=== PATIENT | female | born 1995 | race Caucasian/White ===

== ENCOUNTER 2022-01-01 07:51 | Inpatient (IN) | payer SELFPAY ==
[~2022-01-01] VITALS: Ht 172.7 cm; Wt 80.0 kg
[2022-01-02] VITALS (64 sets, daily range): BP systolic 90–140; BP diastolic 51–94; PULSE 61–101; TEMP 97.6–98.5
--- NOTE | 2022-01-02 06:30 | NUR ---
0630 - PATIENT AMBULATORY TO LDR6 WITH SPOUSE. 0639 - PATIENT CHANGES INTO GOWN. PLAN OF CARE DISCUSSED WITH PATIENT AND SPOUSE. PATIENT PLACED ON MONITOR, VITAL SIGNS OBTAINED. PATIENT REPORTS NO BLEEDING, CONTRACTIONS OR LEAKING OF FLUID. PATIENT REPORTS FEELING APPROPRIATE ACTIVITY. PATIENT ORIENTED TO ROOM AND GIVEN EDUCATION PACKET. CONSENTS EXPLAINED AND SIGNED. 0645 - IV PLACED AND LABS DRAWN ORDERED. LR INITIATED ORDERED. 0725 - PITOCIN GTT INITIATED AT 2MILIUNITS/HR. CARE ONGOING.
[2022-01-02] MEDS ORDERED: PRENATAL TABLET (06:58)
[2022-01-02] MEDS ORDERED: ASPIRIN 81M81 MG/TA2 PO (06:58)
--- NOTE | 2022-01-02 07:50 | NUR ---
0750 - MD TRACEY AT BEDSIDE. PLAN OF CARE DISCUSSED. 0752 - SVE BY . . 0754 - AROM BY MD TRACEY. CARE ONGOING.
[2022-01-02 08:01] LABS: BASO % 0.4 % (0.0-2.0); EOS # 0.1 K/mm3 (0.0-0.7); EOS % 1.7 % (0.0-4.0); GRAN # 5.4 K/mm3 (1.4-6.5); GRAN % 68.2 % (42.2-75.2); HEMOGLOBIN 12.3 g/dl (12.5-16.0); LYMPH # 1.7 K/mm3 (1.2-3.4); LYMPH % 21.8 % (20.0-51.0); MEAN CELL VOLUME 92 fl (80.0-100.0); MEAN CORPUSCULAR HEMOGLOBIN 32 pg (27-31); MEAN CORPUSCULAR HGB CONC 35 g/dl (33.0-37.0); MEAN PLATELET VOLUME 10.7 fl (7.4-10.4); MONO # 0.6 K/mm3 (0.1-0.6); MONO % 7.5 % (1.7-9.3); PLATELET COUNT 192 K/mm3 (130-400); RED BLOOD COUNT 3.89 M/mm3 (4.10-5.30); REDCELL DISTRIBUTION WIDTH-CV 12.6 % (11.5-14.5)
[2022-01-02 08:26] LABS: HEMATOCRIT 35.6 % (37.0-47.0)
--- NOTE | 2022-01-02 11:50 | NUR ---
1150 - PATIENT AMBULATING TO BATHROOM. 1155 - MD TRACEY AT BEDSIDE. PLAN OF CARE DISCUSSED. 1157 - SVE PERFORMED BY MD TRACEY. . PATIENT REPOSITIONED. CARE ONGOING.
--- NOTE | 2022-01-02 12:32 | NUR ---
1132 - MD TRACEY AT BEDSIDE. PLAN OF CARE DISCUSSED. 1136 - [facility] PLACED BY MD TRACEY. CONTRACTIONS TRACING WELL ON MONITOR. CARE ONGOING.
--- NOTE | 2022-01-02 12:46 | NUR ---
1245 - PATIENT REQUESTING EPIDURAL. 1246 - SOLEDAD WORRELL FOR ANESTHESIA NOTIFIED VIA PHONE. 1250 - LR BOLUS INITIATED. 1251 - PATIENT POSITIONED SITTING AT EDGE OF BED FOR EPIDURAL PLACEMENT. 1256 - LOG DRIVER AT BEDSIDE. PLAN OF CARE DISCUSSED WITH PATIENT AND SPOUSE. 1300 - TIME OUT COMPLETED AND EPIDURAL PLACED. SINGLE SHOT GIVEN AT 1302. PATIENT TOLERATED WELL. CARE ONGOING.
--- NOTE | 2022-01-02 14:26 | NUR ---
1426 - MD TRACEY AT BEDSIDE. SVE PERFORMED BY TRACEY. 2. PLAN OF CARE DISCUSSED WITH PATIENT AND SPOUSE. PITOCIN GTT CONTINUES. PATIENT REPOSITIONED CARE ONGOING.
--- NOTE | 2022-01-02 16:40 | NUR ---
1640 - PATIENT POSITIONED FOR BILATERAL SIDE LYING HIP RELEASE. 1648 - SVE PERFORMED BY RADHA CARUSO. /-2. 1707 - PATIENT POSITIONED IN FLYING COWGIRL WITH PEANUT BALL. 1710 - PATIENT BLOOD GLUCOSE 62. PATIENT GIVEN APPLE JUICE AND PEANUT BUTTER TOAST. MD TRACEY NOTIFIED OF BLOOD GLUCOSE AND MOST RECENT SVE. CARE ONGOING.
--- NOTE | 2022-01-02 18:45 | NUR ---
1838- PER DR. TRACEY SALTER TO INCREASE PITOCIN BY 2 MLU EVERY 20 MINUTES UNTIL 30 MLU ACHIEVED.
--- NOTE | 2022-01-02 20:30 | NUR ---
PT COMPLAINING OF NAUSEA. MEDICATION OFFERED BUT PT DECLINES AT THIS TIME.
--- NOTE | 2022-01-02 20:45 | NUR ---
2039- DR. WEBB AT AND [facility] [place], UNCHANGED. PT STILL C/O NAUSEA BUT DENIES WANTING ANY TREATMENT. 2044- PT C/O NAUSEA AND REQUESTING MEDICATION. ZOFRAN IV GIVING. HORMONE SHAKES OBSERVED.
--- NOTE | 2022-01-02 21:15 | NUR ---
2100- BEDSIDE GLUCOSE OF 62. ASYMPTOMATIC. SNACK PROVIDED. [facility] FLUSHED.
--- NOTE | 2022-01-02 21:45 | NUR ---
214- DR. WEBB AT . PT C/O OF SOME PRESSURE IN HER BOTTOM. PT IS COMPLETE AND READY TO PUSH. 2144- JODEE MERAZ.
--- NOTE | 2022-01-02 21:50 | NUR ---
STARTING TO PUSH AT THIS TIME.
--- NOTE | 2022-01-02 23:30 | NUR ---
2315- STRAIGHT CATH'D, SMALL AMOUNT OF URINE NOTED IN DRAINAGE BAG.
--- NOTE | 2022-01-02 23:50 | NUR ---
2350- [facility] REMOVED. CTX PALPATED AT THIS POINT. 2353- VIABLE FEMALE WITH A NUCHAL CORD X1. PLACED ON MOTHER'S ABDOMEN. DRIED AND STIMULATED ON MOTHER'S CHEST. 2356- STRAIGHT CATH'D PERFORMED BY DR. WEBB AND ABOUT 100 ML OF URINE NOTED. SKIN TO SKIN WITH MOTHER. 2358- PLACENTA DELIVERED AND PITOCIN INFUSING AT 333 ML/HR.
[2022-01-03] VITALS (11 sets, daily range): BP systolic 100–123; BP diastolic 51–67; PULSE 77–98; TEMP 97.4–98.2
[2022-01-03] MEDS ORDERED: MOTRIN 800800 MG/TAB PO (00:20)
--- NOTE | 2022-01-03 01:00 | NUR ---
0100- PT STILL SKIN TO SKIN WITH AND NURSING. 0115- STILL NURSING. 0130- MOTHER DONE WITH SKIN TO SKIN AND NOW BABY SKIN TO SKIN WITH DAD. PT SITTING UP IN BED EATING. ABLE TO TOLERATE FOOD. DENIES ANY PAIN AT THIS TIME. PITOCIN BOLUS COMPLETED AND SALINE LOCKED. 0145- PT SLEEPING. AT BS WITH BABY. 0225- EPIDURAL CATHETER REMOVED W/O ANY DIFFICULTIES. PT TOLERATED WELL. 0230- PT'S LEFT LEG STILL FEELING NUMB. WILLIAN CARE PERFORMED BY RN AND NEW WILLIAN PAD, ICE PACK AND TUCKS APPLIED. PT C/O BACK PAIN. TYLENOL PO GIVEN. 0245- PT TRANSFERRED TO PP ROOM 207 VIA W/C. IN [facility]. POC D/W PT AND SPOUSE. CALL LIGHT WITHIN REACH. NO OTHER NEEDS IDENTIFIED AT THIS TIME.
--- NOTE | 2022-01-03 09:15 | NUR ---
Initial visit; Parents thanked Pool Manager for offering congratulations and God's blessings for the of their daughter. Pool Manager thanked family for choosing [facility].
--- NOTE | 2022-01-04 09:30 | NUR ---
Pt and spouse watching education videos at this time
--- NOTE | 2022-01-04 15:20 | NUR ---
Discharge instructions for pt and baby reviewed with pt and pt's spouse regarding follow-up appointments, activity restrictions, medications, etc. ID bands matched between pt and baby.
--- NOTE | 2022-01-04 15:35 | NUR ---
Pt discharged home, ambulates out of facility accompanied by this nurse and pt's spouse with baby.
== END 2022-01-04 15:35 | disposition home or self-care (01) | DRG 807 ==
LOC: LDR 01-02 06:24 → OB 01-02 06:24 → LDR 01-02 07:51 → OB 01-03 03:58
PROVIDERS: ADMIT Obstetrics & Gynecology
PROC: 3E033VJ Introduction of Other Hormone into Peripheral Vein, Percutaneous Approach (ICD-10-PCS; 2022-01-02)
PROC: 10E0XZZ Delivery of Products of Conception, External Approach (ICD-10-PCS; principal; 2022-01-03)
PROC: 0KQM0ZZ Repair Perineum Muscle, Open Approach (ICD-10-PCS; 2022-01-03)
PROC: 10907ZC Drainage of Amniotic Fluid, Therapeutic from Products of Conception, Via Natural or Artificial Opening (ICD-10-PCS; 2022-01-03)
DX: O24.420 Gestational diabetes mellitus in childbirth, diet controlled (principal); Z37.0 Single live birth; O70.1 Second degree perineal laceration during delivery; O34.03 Maternal care for unspecified congenital malformation of uterus, third trimester; O99.02 Anemia complicating childbirth; D64.9 Anemia, unspecified; O69.81X0 Labor and delivery complicated by cord around neck, without compression, not applicable or unspecified; Z3A.39 39 weeks gestation of pregnancy; Z86.16 Personal history of COVID-19
CPT/HCPCS: J2405; J2590; J2795; J7120